=== PATIENT | male | born 1985 | race Caucasian/White ===

== ENCOUNTER 2019-04-19 11:06 | Day surgery (SDC) | payer MEDICAID ==
[~2019-04-19] VITALS: Ht 175.3 cm; Wt 102.7 kg
[2019-04-19] MEDS ORDERED: LIDOCAINE/PF 2% 5 ML SYRINGE IVP ONE (11:07)
[2019-04-19] MEDS ORDERED: ONDANSETRON HCL 4 MG/2 ML VIAL IVP ONE (11:07)
[2019-04-19] MEDS ORDERED: MIDAZOLAM HCL 2 MG/2 ML VIAL IVP ONE (11:07)
[2019-04-19] MEDS ORDERED: PHENYLEPHRINE HCL 10 MG/ML VIAL IVP ONE (11:07)
[2019-04-19] MEDS ORDERED: PROPOFOL 1% 20 ML VIAL IVP ONE (11:07)
[2019-04-19] MEDS ORDERED: ROCURONIUM BROMIDE 10 MG/ML 5 ML VIAL IVP ONE (11:07)
[2019-04-19] MEDS ORDERED: EPHEDrine SULFATE 50 MG/ML VIAL IM ONE (11:07)
[2019-04-19] MEDS ORDERED: FentaNYL CITRATE-PF 100 MCG/2 ML VIAL IVP ONE (11:07)
[2019-04-19] MEDS ORDERED: SODIUM CHLORIDE 0.9% 1,000 ML ONE (11:28)
[2019-04-19] MEDS ORDERED: SODIUM CHLORIDE 0.9% 1,000 ML IV ONE (12:00)
[2019-04-19 12:13] LABS: BASOPHILS % (AUTO) 0.6 % (0.0-2.0); EOSINOPHILS % (AUTO) 2.1 % (1.0-6.0); HEMOGLOBIN 9.1 g/dL (13.5-17.5); LYMPHOCYTES % (AUTO) 19.4 % (22.0-44.0); MEAN CORPUSCULAR HEMOGLOBIN 35.5 pg (26.0-34.0); MEAN CORPUSCULAR HGB CONC 34.9 G/dL (31.0-37.0); MEAN CORPUSCULAR VOLUME 102 fL (80-100); MONOCYTES # (AUTO) 0.6 K/uL (0.1-1.0); MONOCYTES % (AUTO) 11.4 % (2.0-9.0); NEUTROPHILS # (AUTO) 3.6 K/uL (1.8-7.7); NEUTROPHILS % (AUTO) 66.5 % (40.0-70.0); PLATELET COUNT (AUTO) 189 K/uL (150-450); RED BLOOD CELL COUNT(AUTO) 2.57 MIL/uL (4.50-5.90); RED CELL DISTRIBUTION WIDTH 16.1 % (11.5-14.5)
[2019-04-19 12:25] LABS: CALCIUM, TOTAL 9.6 mg/dL (8.8-10.5); CREATININE 15.07 mg/dL (0.60-1.30); POTASSIUM 4.8 mmol/L (3.5-5.1)
[2019-04-19 12:37] LABS: ALBUMIN 3.3 g/dL (3.4-5.0); BILIRUBIN,TOTAL 0.3 mg/dL (0.1-1.0); TOTAL PROTEIN, SERUM 7.1 g/dL (6.4-8.2)
[2019-04-19] MEDS ORDERED: SERT100T12 PO (12:47)
[2019-04-19] MEDS ORDERED: TRAZ-220 PO (12:47)
[2019-04-19] MEDS ORDERED: OMEP20 PO (12:47)
[2019-04-19] MEDS ORDERED: DOCU250C90 PO (12:47)
[2019-04-19] MEDS ORDERED: CALCITROL PO (12:47)
[2019-04-19] MEDS ORDERED: DOXY150T5 PO (12:47)
[2019-04-19] MEDS ORDERED: CINA30 PO (12:47)
[2019-04-19] MEDS ORDERED: ONDA-104 PO (12:47)
[2019-04-19] MEDS ORDERED: RISP3TAB13 PO (12:47)
[2019-04-19] MEDS ORDERED: LEVO50 PO (12:47)
[2019-04-19] MEDS ORDERED: CLON.5 PO (12:47)
[2019-04-19] MEDS ORDERED: SUCR500T PO (12:47)
[2019-04-19] MEDS ORDERED: CARV3 PO (12:47)
[2019-04-19] MEDS ORDERED: ERGO50CA PO (12:47)
[2019-04-19] MEDS ORDERED: LIDOCAINE/PF 1% 30 ML VIAL ONE (13:15)
[2019-04-19] MEDS ORDERED: HEPARIN SODIUM 1000 UNITS/NS 500 ML ONE (13:15)
[2019-04-19] MEDS ORDERED: HEPARIN SODIUM,PORCINE 5,000 UNITS/ML VIAL ONE (14:16)
[2019-04-19] MEDS ORDERED: PAPAVERINE 30 MG/ML ICAV STA (14:29)
[2019-04-19] MEDS ORDERED: FentaNYL CITRATE-PF 100 MCG/2 ML VIAL IVP PRN (15:00)
[2019-04-19] MEDS ORDERED: BUPIVACAINE HCL/PF 0.5% 30 ML VIAL ONE (15:02)
== END 2019-04-19 17:05 | disposition home or self-care (01) ==
LOC: SURGERY 11:06
PROVIDERS: ATTEND Surgery
DX: I12.0 Hypertensive chronic kidney disease with stage 5 chronic kidney disease or end stage renal disease (principal); N18.6 End stage renal disease; F41.9 Anxiety disorder, unspecified; E03.9 Hypothyroidism, unspecified; D64.9 Anemia, unspecified; F20.9 Schizophrenia, unspecified; K21.9 Gastro-esophageal reflux disease without esophagitis; E66.9 Obesity, unspecified; Z68.33 Body mass index [BMI] 33.0-33.9, adult; Z98.890 Other specified postprocedural states; Z79.899 Other long term (current) drug therapy
CPT/HCPCS: 36415; 36821; 80053; 85025; J0690; J1644 ×2; J2250; J2370; J2405; J2440; J2704; J3010; J3490 ×5; J7030